=== PATIENT | male | born 1980 | race Caucasian/White ===

== ENCOUNTER 2017-05-30 20:04 | Emergency (ER) | payer OTHER ==
[~2017-05-30] VITALS: Ht 170.2 cm; Wt 113.4 kg
[2017-05-30 20:09] VITALS: BP 150/86
--- NOTE | 2017-05-30 20:17 | ED UPPER/LOWER EXTREMITY COMPL ---
History of Present Illness General Chief Complaint: Lower Extremity Problems Stated Complaint: PAIN R CALF FOR 1.5 WEEKS Source: patient, old records Exam Limitations: no limitations Vital Signs & Intake/Output Vital Signs & Intake/Output Vital Signs Date Time Temp Pulse Resp B/P B/P Pulse O2 O2 Flow FiO2 Mean Ox Delivery Rate 05/30 2009 97.5 90 18 150/86 96 Room Air Allergies Coded Allergies: No Known Allergies (05/30/17) Triage Note: PT TO TRIAGE FOR C/O R CALF PAIN 5/10 AND PRESSURE x1.5 WEEK. NO KNOWN INJURY. VSS. NO OTHER COMPLAINTS. Triage Nurses Notes Reviewed? yes Onset: Gradual Duration: week(s): (1.5), constant Timing: recent history Severity: mild, moderate Severity Numbers: 5 Pain/Injury Location: Right: Other (CALF). Method of Injury: unknown No Modifying Factors: none Associated Symptoms: none HPI: 37-year-old male presents to ER for evaluation complaining of right calf pain for the past 1-1/2 weekS. He denies any known injury or trauma he states proximally 3 weeks ago he traveled to [place]. He denies any swelling to his leg. The pain is constant but worse with plantar flexion of the foot. He denies any foot knee or hip pain no back pain no numbness or tingling he denies any rashes to his skin there are no modifying factors or associated symptoms he' s been using ice ibuprofen and stretching with no relief. No chest pain or shortness of breath. He states it gets better as the day goes on (CHRIS ORTIZ) Past History Travel History Traveled to [facility] past 21 day No Medical History Any Pertinent Medical History? see below for history Musculoskeletal: L ANKLE FRACTURE Surgical History Surgical History: none Psychosocial History What is your primary language French Tobacco Use: Never used Family History Hx Contributory? No (CHRIS ORTIZ) Review of Systems Review of Systems Constitutional: Reports: see HPI. All Other Systems: Reviewed and Negative Comments Review of systems: See HPI, All other systems negative. Constitutional, no chills no fever, no malaise HEENT: No visual changes no sore throat no congestion Cardiovascular: No chest pain , no palpitation Skin: no rashes, no change in skin Respiratory: No dyspnea no cough no sputum GI: No nausea no vomiting, no diarrhea, Muscle skeletal: No joint pain, no joint swelling, no back pain Neurologic: no headache Psych: No stress Heme/endocrine: No bruising no bleeding Immunology: No lymphadenopathy (CHRIS ORTIZ) Physical Exam Physical Exam General Appearance: well developed/nourished, no apparent distress, alert Comments: Well-developed well-nourished patient in no apparent distress. HEENT: Atraumatic, extraocular motion intact Neck: Supple, FROM Back: FROM Cardiovascular: Regular rate and rhythms no murmurs rubs or gallops, Respiratory: Chest nontender.There were no bony deformities, no asymmetry. No respiratory distress. Patient speaking in full complete sentences. Breath sounds clear to auscultation bilaterally: NO W/R/R Upper Extremities: full range of motion Hip/Pelvis: Atraumatic/Stable. FROM. No pain with pelvic compression Knee: Atraumatic/stable. FROM. No joint swelling, no effusion. No laxity. No pain with ROM Leg: Atraumatic. Pain is reproducible with plantar flexion of the right foot , neg homans sign, Nontender. No edema, 5 out of 5 strength in the lower extremity, normal dorsiflexion of great toe bilaterally, gross sensation is intact, Ankle/Foot: Atraumatic/stable. Skin intact. FROM. No swelling, no effusion. No laxity on exam Pulses: Normal/equal DP/PT pulses bilaterally. Brisk cap refill Neuro: awake, alert, and oriented to person, place and time. There were no obvious focal neurologic abnormalities. Skin: Warm & dry;No appreciable rash on exposed skin Psych: Mood affect normal, normal memory normal judgment. (CHRIS ORTIZ) Progress Differential Diagnosis: arterial insufficiency, cellulitis, compartment syndrome , contusion, DVT, fracture, gout, sprain, tendon injury, tendonitis Plan of Care: Orders Procedure Date/time Status US-UNILATERAL VENOUS DOPPLER 05/30 2030 Active Patient is declining anything for pain when offered I discussed with the patient at length all of their results. I had an extensive conversation regarding need for close follow up with their primary care physician this week as well as return precautions. I answered all of their questions, they feel comfortable with the plan and follow-up care. (CHRIS ORTIZ) Diagnostic Imaging: Viewed by Me: Ultrasound. Discussed w/RAD: Ultrasound. Radiology Impression: PATIENT: CHUCHO HALEY PRESENT AGE: 37 PATIENT ACCOUNT NO: [id number] : 78 LOCATION: [facility] ORDERING PHYSICIAN: CHRIS KAUR SERVICE DATE: 05/30/17 EXAM TYPE: US - US- UNILATERAL VENOUS DOPPLER EXAMINATION: US TRIPLEX LOWER EXTREMITY, RIGHT CLINICAL INFORMATION: Pain and edema and tenderness. COMPARISON: None TECHNIQUE: Color-flow triplex imaging with spectral analysis and compression Doppler were performed on the lower extremity. Selected static images are provided for interpretation. Cine loop is also provided through the calf. FINDINGS: Respiratory variation, normal compression and augmented flow are noted throughout the left lower extremity. The visualized common femoral vein, superficial femoral vein, profunda femoral vein, popliteal vein and tibioperoneal trunk venous segments included show no evidence of deep venous thrombosis. There is no Morgan's cyst. IMPRESSION: No evidence of deep venous thrombosis involving the right lower extremity. DICTATED BY: DEVORAH QUIÑONEZ MD DATE/TIME DICTATED:05/30/172107 BOARD OPERATOR:NATY DATE/TIME TRANSCRIBED:05/30/172107 CONFIDENTIAL, DO NOT COPY WITHOUT APPROPRIATE AUTHORIZATION. <Electronically signed in Other Vendor System> SIGNED BY: DEVORAH QUIÑONEZ MD 05/30/172113 (CHRIS ORTIZ) Departure Departure Time of Disposition: 2114 Disposition: HOME OR SELF CARE Condition: Stable Clinical Impression Primary Impression: Calf pain Referrals: LADY FAUSTIN,TRACY Kline (PCP/Family) Additional Instructions: REST ICE TYLENOL OR MOTRIN FOLLOW UP WITH YOUR PMD RETURN TO THE ER WITH ANY CONCERNS Departure Forms: Customer Survey General Discharge Information (CHRIS ORTIZ) PA/SKILLED NURSING PROFESSIONAL Co-Sign Statement Statement: ED Attending supervision documentation- I saw and evaluated the patient. I have also reviewed all the pertinent lab results and diagnostic results. I agree with the findings and the plan of care as documented in the PA's/SKILLED NURSING PROFESSIONAL's documentation. x I have reviewed the ED Record and agree with the PA's/SKILLED NURSING PROFESSIONAL's documentation. [] Additions or exceptions (if any) to the PAs/SKILLED NURSING PROFESSIONAL's note and plan are summarized below: [] (MARIEL FAUSTIN,ANGÉLICA)
--- NOTE | 2017-05-30 21:14 | ULTRASOUND REPORT ---
EXAMINATION: US TRIPLEX LOWER EXTREMITY, RIGHT CLINICAL INFORMATION: Pain and edema and tenderness. COMPARISON: None TECHNIQUE: Color-flow triplex imaging with spectral analysis and compression Doppler were performed on the lower extremity. Selected static images are provided for interpretation. Cine loop is also provided through the calf. FINDINGS: Respiratory variation, normal compression and augmented flow are noted throughout the left lower extremity. The visualized common femoral vein, superficial femoral vein, profunda femoral vein, popliteal vein and tibioperoneal trunk venous segments included show no evidence of deep venous thrombosis. There is no Morgan's cyst. IMPRESSION: No evidence of deep venous thrombosis involving the right lower extremity.
== END 2017-05-30 21:25 ==
LOC: ERH 20:04
DX: M79.661 Pain in right lower leg (principal)

== ENCOUNTER 2018-05-28 02:19 | Inpatient (IN) | payer OTHER ==
[~2018-05-28] VITALS: Ht 170.2 cm; Wt 120.7 kg
[~2018-05-28 02:19] MED LIST: MOBIC7.5 M1 PO
--- NOTE | 2018-05-28 11:55 | Operative Report ---
Operative/Inv Procedure Report Surgery Date: 05/28/18 Name of Procedure: Laparoscopic Sleeve Gastrectomy Pre-Operative Diagnosis: Morbid Obesity BMI 43, SAMM Post-Operative Diagnosis: Same Estimated Blood Loss: less than 50ml Surgeon/Pocket Setter: Maverick Acevedo DO Anesthesia: general endotracheal tube IV Fluids: 1400 cc Drains: None Specimens: Stomach Complications: None Condition: Stable Operative Indication: This is a 38-year-old male who presented to the community relations officer for bariatric surgery. After appropriate workup was completed I discussed with the patient the band, the sleeve, and the gastric bypass. The patient chose to undergo a sleeve gastrectomy. All risks including but not limited to bleeding, infection, leak, stricture, injury to surrounding bowel/esophagus/stomach/liver/spleen, long-term reflux, DVT/PE, and mortality of 12/999 patients were discussed in detail. The patient understood everything and decided to proceed. Operative/Procedure Note Note: The patient was brought to the operating room and placed on the operating room table in supine position. Venodyne stockings were placed and adequate general endotracheal anesthesia was obtained. The patient was prepped and draped in standard surgical fashion. Began the procedure by making a 2 cm transverse incision supraumbilically and slightly to the left of the midline. Then using a 12 mm clear Visiport and a 10 mm 0 laparoscope, the abdominal cavity was accessed. Great care was taken to go through the anterior rectus sheath, the posterior rectus sheath, and through the peritoneum. Once we entered the peritoneum the abdominal cavity was insufflated to 15 mmHg. Upon initial examination no obvious gross pathology was seen. Accessory trocars were placed, 5 mm in the epigastrium for the Oren liver retractor. The retractor was inserted and the liver was retracted anteriorly exposing the hiatus, no hiatal hernia was seen. 5 mm ports were placed in the right and left upper quadrant, a 5 mm left lateral port, and a 15 mm right lateral port. Began the procedure by mobilizing the greater curvature of the stomach approximately 7 cm from the pylorus. Once the retrogastric space was reached the whole greater curvature was mobilized maintaining hemostasis using Harmonic scalpel. Full hiatal dissection was performed, no hiatal hernia was seen. Posterior adhesions were taken down using Harmonic scalpel as well. Once the stomach was adequately mobilized a 38 [place]gu[place] bougie was inserted and placed along the lesser curvature of the stomach. Once the bougie was in the appropriate position we began creating our sleeve, two 60 mm black staple loads with seamguard followed by two 60 mm purple staple loads with seamguard as well and finished with a 45 mm purple load. Great care was taken to leave ample room at the incisura angularis , to prevent any twisting or kinking of the sleeve, to stay lateral to the esophagogastric fat pad, and to do a full fundal excision. At the completion of the staple line the staple line was examined, it appeared intact and no obvious bleeding was noted. The bougie was removed, the sleeve was lying nicely without any twisting or kinking. The resected stomach was removed through the right lateral port site. The port and the left upper quadrant were irrigated until clear. All ports were removed under direct visualization no obvious bleeding was noted. The 15 mm port site fascia was closed using 0 Vicryl suture. The skin was closed using 4-0 Monocryl. Steri-Strips and dressings were placed. The patient was successfully extubated and transferred to the recovery room in stable condition. The patient tolerated the procedure well with no complications. Findings: No hiatal hernia, 38 Fr bougie CC: Lilliam FAUSTIN,He Kline
--- NOTE | 2018-05-28 12:22 | Surg Short-stay <48hrs Dis Sum ---
Visit Information Visit Dates Admission Date: 05/28/18 Discharge Date: 05/29/18 Surgical Short Stay DC Summary Admission Diagnosis: Morbid Obesity (BMI 43), SAMM Final Diagnosis: SAME ABOVE, S/P Surgery Date: 05/28/18 Name of Procedure: Laparoscopic Sleeve Gastrectomy Procedure(s): Surgery Date: 05/28/18 Name of Procedure: Laparoscopic Sleeve Gastrectomy Summary/Significant Findings: Electively scheduled laparoscopic sleeve gastrectomy on 05/28/18 by , for history of morbid obesity (BMI 43) and SAMM. Started on stage 1 bariatric diet post-operatively. Pain control transitioned from iv to oral medication. Lovenox teaching done prior to discharge home. His pre-operative meloxicam will be held indefinitely due to it being a nsaid, with ulcer risk potential. Condition at Discharge: stable Discharge Disposition: home or self care Discharge instructions provided to patient/family: Yes Post discharge follow-up plan: one week follow up with lovenox teaching done prior to discharge home Copies to: Lilliam FAUSTIN,He Kline
--- NOTE | 2018-05-28 12:24 | Admission Core Measures ---
Acute Coronary Syndrome (CM) ACS Core Measures Acute Coronary Syndrome Diagnosis No Congestive Heart Failure (NEW) CHF Core Measures Congestive Heart Failure Diagnosis No Cerebrovascular Accident CVA Core Measures CVA/TIA Diagnosis No Venous Thromboembolism VTE Core Luisa (View Protocol) VTE Risk Factors Surgery No Mechanical VTE Prophylaxis d/t N/A MechProphylax Ordered No VTE Pharm Prophylaxis d/t NA PharmProphylax ordered Problem List As ranked by this Provider includes Assessment & Plan 1. Morbid obesity 2. S/P laparoscopic sleeve gastrectomy HOME MEDS Home Med List Meloxicam (Mobic) 7.5 MG TABLET 1 TAB PO DAILY ARTHRITIS (Reported)
--- NOTE | 2018-05-28 12:27 | Patient Discharge Instructions ---
Discharge Instructions General Discharge Information You were seen/treated for: Morbid Obesity (BMI 43), SAMM You had these procedures: Surgery Date: 05/28/18 Name of Procedure: Laparoscopic Sleeve Gastrectomy Watch for these problems: fever>101.3, increased pain, redness/swelling/drainage, shortness of breath, chest pains, dizziness No bath, but you may shower: Yes Other wound care: ok to remove bandaids. leave white steri strips in place. keep incisions clean & dry. Special Instructions: continue lovenox injections as directed Diet Continue normal diet: No Recommended Diet: Bariatric Additional DIET Information: weekly bariatric stage diet advancement as tolerated, as directed Activity Full Activity/No Limits: No Activity Self Limited: Yes Pounds, do NOT lift more than: 10 Other activity limits: walk frequently Additional ACTIVITY Info: no heavy lifting. no strenuous activity. Acute Coronary Syndrome Inclusion Criteria At DC or during hospital stay patient has or had the following: ACS DIAGNOSIS No Discharge Core Measures Meds if any: Prescribed or Continued at Discharge Meds if any: NOT Prescribed or Continued at Discharge Congestive Heart Failure Inclusion Criteria At DC or during hospital stay patient has or had the following: CHF DIAGNOSIS No Discharge Core Measures Meds if any: Prescribed or Continued at Discharge Meds if any: NOT Prescribed or Continued at Discharge Cerebrovascular accident Inclusion Criteria At DC or during hospital stay patient has or had the following: CVA/TIA Diagnosis No Discharge Core Measures Meds if any: Prescribed or Continued at Discharge Meds if any: NOT Prescribed or Continued at Discharge Venous thromboembolism Inclusion Criteria VTE Diagnosis No VTE Type NONE VTE Confirmed by (Test) NONE Discharge Core Measures - Per Current guidelines, there needs to be overlap - treatment for the first 5 days of Warfarin therapy. - If discharged on Warfarin prior to 5 days of - overlap therapy, the patient will need to be - assessed for post discharge needs including - *Post discharge parental anticoagulation - *Warfarin and/or parental anticoagulation education - *Follow up date to check INR post discharge At least 5 days overlap therapy as Inpatient No Meds if any: Prescribed or Continued at Discharge Note: Overlap Therapy is Warfarin and Anticoagulant Meds if any: NOT Prescribed or Continued at Discharge
[2018-05-28] MEDS ORDERED: PROTONIX40 M3 PO (12:28)
[2018-05-28] MEDS ORDERED: LOVENOX40 MG/0.1 SC (12:28)
[2018-05-28] MEDS ORDERED: HYCET 7.5 MG-3473 ML PO (12:28)
--- NOTE | 2018-05-28 14:08 | PN- Bariatrics ---
Subjective Subjective: POSTOP CHECK Patient reports minimal incisional discomfort, which is well controlled. He reports a SKELTON earlier, which has since resolved. He reports he is tolerating ice chips without any nausea or vomiting. He reports voiding. He offers no other complaints. Objective Vital Signs and I&Os afebrile, BP 168/91, HR 82, O2 93% Physical Exam: Gen - diaphoretic, baseline accompained by his in nad Cardiac -S1S2 noted, RRR Lungs - CTAB Abd - soft, obese, 6 dressings with scant sanguineous drainage, bowel sounds present, dull to percussion, appropriately tender aly-incisionally, no rebound or guarding Ext - no edema or calf tenderness Current Medications: Current Medications Sig/Becka Start time Last Medication Dose Route Stop Time Status Admin Cefazolin Sodium 3,000 MG ONCE 05/28 0000 NR IV 05/28 2359 Heparin Sodium 5,000 UNIT ONCE 05/28 0000 NR (Porcine) SC 05/28 235 Assessment/Plan Assessment/Plan 38 y/o morbidly obese M w/ a BMI of 43 and a PMHx of OA and SAMM who is s/p laparoscopic sleeve gastrectomy, recovering well Advance to stage 1 bariatric diet Cont IVF NPO after midnight for possible UGI Postop abx - ancef x3 Pain regimen prn GI/DVT ppx on board Lovenox teaching Encourage ambulation, IS Labs in am Core Measures Venous Thromboembolism VTE Risk Factors Surgery No Mechanical VTE Prophylaxis d/t N/A MechProphylax Ordered No VTE Pharm Prophylaxis d/t NA PharmProphylax ordered
[2018-05-28 14:15] VITALS: BP 168/91
[2018-05-28 18:00] VITALS: BP 160/60
[2018-05-28 22:00] VITALS: BP 160/84
[2018-05-29 06:12] VITALS: BP 143/77
[2018-05-29 07:53] LABS: ABSOLUTE BASOPHIL COUNT 0 /CUMM (0.0-0.2); ABSOLUTE EOSINOPHIL COUNT 0 /CUMM (0.0-0.7); ABSOLUTE GRANULOCYTE CT 8.5 /CUMM (1.4-6.5); ABSOLUTE MONOCYTE COUNT 0.7 /CUMM (0.10-0.60); BASOPHIL % 0.2 % (0.0-2.0); EOSINOPHIL % 0.2 % (0-5); GRANULOCYTE % 82.9 % (42.2-75.2); HEMATOCRIT 44.2 % (42-52); MEAN CORPUSCULAR HGB 28.7 PG (27.0-31.0); MEAN CORPUSCULAR HGB CONC 33.8 G/DL (33.0-37.0); MEAN CORPUSCULAR VOLUME 84.8 FL (80.0-94.0); MEAN PLATELET VOLUME 8.2 FL (7.4-10.4); PLATELET COUNT 223 /CUMM (130-400); RBC DISTRIBUTION WIDTH 13.5 % (11.5-14.5); RED BLOOD CELL CT 5.21 /CUMM (4.70-6.10); WHITE BLOOD CELL COUNT 10.3 /CUMM (4.8-10.8)
--- NOTE | 2018-05-29 08:17 | PN- Bariatrics ---
Subjective Subjective: Pt. feels well, had one brief emesis episode in bathroom yesterday with minimal amounts but after has been feeling very well without nausea throughout the night and this morning. Ambulating Taking oral narcoticas needed. Passing flatus. Objective Vital Signs and I&Os Vital Signs Date Time Temp Pulse Resp B/P B/P Pulse O2 O2 Flow FiO2 Mean Ox Delivery Rate 05/29 0612 98.2 65 20 143/77 95 05/29 0600 95 Room Air 05/28 2200 99.6 68 20 160/84 96 Room Air 05/28 1800 98.9 60 20 160/60 97 Room Air 05/28 1749 Room Air Room Air 05/28 1600 97 Room Air 05/28 1415 96.8 82 18 168/91 93 Room Air Intake & Output 05/29 1600 05/29 0800 05/29 0000 05/28 1600 05/28 0800 05/28 0000 Intake Total 500 1270 960 Output Total 0 700 Balance 500 570 960 Intake, IV 500 1000 600 Intake, Oral 0 270 360 Output, Urine 0 700 Patient 266 lb 266 lb Weight Weight Bed scale Reported by Patient Measurement Method Alert, looks well and comfortable. Cor regular Lungs clear bilat. Abdomen soft , obese, minimal tenderness at incisional sites.Mild bruising , no bleeding. Extr. without edema. Assessment/Plan Assessment/Plan s/p lap. gastric sleeve POD#1 Progressing very well. Abdominal exam is benign, incisional sites without signs of infection. One brief episode of emesis yesterday , none since, feels well. Will cncell UGI and place on stage 1 diet. Will hep lock IVF Continue ambulation. Had elevated SBP yesterday, improved today , perhaps pain related. He is not on antihypertensive meds at home.Will monitor. I anticipate d/c home today if continues to do well with diet. Pt. has script for Lovenox at home. Core Measures Venous Thromboembolism VTE Risk Factors Surgery No Mechanical VTE Prophylaxis d/t N/A MechProphylax Ordered No VTE Pharm Prophylaxis d/t NA PharmProphylax ordered
[2018-05-29] MEDS ORDERED: PROTONIX40 M3 PO (12:21)
[2018-05-29] MEDS ORDERED: HYCET 7.5 MG-3473 ML PO (12:21)
== END 2018-05-29 14:20 | DRG 621 ==
LOC: SDA 02:19 → 2NB 02:19 → ENRESERV 12:09 → 2NB 14:07 → ENTRNSPT 05-29 14:01 → EDTRNSPTSTS 05-29 14:11 → 2NB 05-29 14:20 → CMPTRNSPT 05-29 14:24
PROVIDERS: Physician Assistant
PROC: 0DB64Z3 Excision of Stomach, Percutaneous Endoscopic Approach, Vertical (ICD-10-PCS; principal; 2018-05-28)
PROC: 3E0T3BZ Introduction of Anesthetic Agent into Peripheral Nerves and Plexi, Percutaneous Approach (ICD-10-PCS; principal; 2018-05-28)
DX: E66.01 Morbid (severe) obesity due to excess calories (principal); Z68.41 Body mass index [BMI] 40.0-44.9, adult; G47.33 Obstructive sleep apnea (adult) (pediatric); M19.90 Unspecified osteoarthritis, unspecified site; Z88.1 Allergy status to other antibiotic agents
CPT/HCPCS: 2NBP; 36415; 82436; J0131; J0690; J1100; J1644; J1885; J2405; J7042